=== PATIENT | male | born 1990 | race African-American/Black ===

== ENCOUNTER 2019-03-30 10:58 | Emergency (ER) | payer SELFPAY ==
[2019-03-30 11:02] VITALS: BMI 23.1
[2019-03-30] MEDS ORDERED: BACTRIM 400-801 TAB PO (11:31)
[2019-03-30 12:43] VITALS: BP 110/72
== END 2019-03-30 12:45 | disposition home or self-care (01) ==
LOC: D.ER 10:58
DX: L03.115 Cellulitis of right lower limb (principal)